=== PATIENT | male | born 1995 | race Caucasian/White ===

== ENCOUNTER 2022-06-29 13:52 | Emergency (ER) | payer OTHER ==
[~2022-06-29] VITALS: Ht 200.7 cm; Wt 102.3 kg
== END 2022-06-29 15:16 | disposition home or self-care (01) ==
LOC: ED 13:52
DX: R10.84 Generalized abdominal pain (principal); J45.909 Unspecified asthma, uncomplicated
CPT/HCPCS: 36415; 80053; 81003; 83690; 85025; 99284

== ENCOUNTER 2022-07-10 06:28 | Emergency (ER) | payer OTHER ==
[~2022-07-10] VITALS: Ht 200.7 cm; Wt 100.7 kg
--- OUTSIDE RECORDS SUMMARY | 2022-07-10 06:36 | XMS ---
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 Norma VISIT COUNT (12 MO.) 2 [facility] TOTAL 2 NOTE: Visits indicate total known visits. ED/UCC VISIT TRACKING (12 MO.) 07/10/2022 06:[address] [facility] [place] TYPE: Emergency COMPLAINT: - L SIDE ABD PAIN 06/29/2022 13:53 [facility] TYPE: Emergency COMPLAINT: - ABD PAIN DIAGNOSES: - Unspecified asthma, uncomplicated - Generalized abdominal pain INPATIENT VISIT TRACKING (12 MO.) No inpatient visits to display in this time frame [email or web address]
== END 2022-07-10 09:21 | disposition home or self-care (01) ==
LOC: ED 06:28
DX: K52.9 Noninfective gastroenteritis and colitis, unspecified (principal)
CPT/HCPCS: 36415; 74177; 80053; 81003; 83690; 83735; 85025; 96360; 99284-25; J7030; Q9967